=== PATIENT | male | born 1975 ===

== ENCOUNTER 2018-09-15 08:53 | Outpatient (CLI) | payer OTHER | END 2018-09-15 08:54 | disposition home or self-care (01) | LOC: C.USIC 08:53 | DX: R94.5 Abnormal results of liver function studies (principal) ==

== ENCOUNTER 2018-10-21 10:00 | Outpatient (CLI) | payer OTHER | END 2018-10-21 10:01 | disposition home or self-care (01) | LOC: C.MRIC 10:00 | DX: R94.5 Abnormal results of liver function studies (principal) ==

== ENCOUNTER 2018-11-16 08:38 | Outpatient (CLI) | payer MEDICAID | END 2018-11-16 08:39 | disposition home or self-care (01) | LOC: C.PAT 08:38 | DX: K82.4 Cholesterolosis of gallbladder (principal) ==